=== PATIENT | female | born 2000 | race African-American/Black ===

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

== ENCOUNTER 2023-01-31 03:53 | Emergency (ER) | payer OTHER ==
[~2023-01-31] VITALS: Ht 152.4 cm; Wt 60.0 kg
[2023-01-31] MEDS ORDERED: PERTUSS(ACELL),DIPH,TET VAC/PF 0.5 ML SYRINGE IM. ONE (04:15)
[2023-01-31 04:30] VITALS: BP 115/65; PULSE 74; RESP 14; TEMP 98.3
== END 2023-01-31 05:39 | disposition home or self-care (01) ==
LOC: EMS 03:55
DX: S91.311A Laceration without foreign body, right foot, initial encounter (principal); W22.8XXA Striking against or struck by other objects, initial encounter; Y93.89 Activity, other specified; Y92.89 Other specified places as the place of occurrence of the external cause; Y99.8 Other external cause status
CPT/HCPCS: 12001; 90471; 90715; 99283

== ENCOUNTER 2023-02-01 21:06 | Emergency (ER) | payer OTHER ==
[~2023-02-01] VITALS: Ht 162.6 cm; Wt 50.0 kg
[2023-02-01 21:27] VITALS: TEMP 98
[2023-02-01 23:49] VITALS: BP 110/72; PULSE 70; RESP 18
== END 2023-02-01 23:51 | disposition home or self-care (01) ==
LOC: EMS 21:07
DX: S91.311D Laceration without foreign body, right foot, subsequent encounter (principal); W22.8XXD Striking against or struck by other objects, subsequent encounter
CPT/HCPCS: 99283